=== PATIENT | female | born 1995 | race Caucasian/White ===

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

== ENCOUNTER 2017-05-25 19:05 | Emergency (ER) | payer OTHER ==
[~2017-05-25] VITALS: Ht 154.9 cm; Wt 49.0 kg
[2017-05-25 19:08] VITALS: Ht 154.9 cm; Wt 49.0 kg
[2017-05-25 20:08] LABS: BASOPHIL % 0.6 % (0-2); PLATELET COUNT 143 x10^3mcL (130-400); RED CELL DISTRIBUTION WIDTH 13.2 % (11.5-14.5); UA SPECIFIC GRAVITY >=1.030 (1.005-1.035); microscopic required? YES; urine erythrocyte NEGATIVE (NEGATIVE)
[2017-05-25 20:15] LABS: CALCIUM 8.5 mg/dL (8.5-10.1); CARBON DIOXIDE 27.8 mmol/L (21-32); CHLORIDE SERUM 105 mmol/L (98-107); CREATININE SERUM 0.5 mg/dL (0.6-1.0); GFR1 > 60 mL/min; GLUCOSE SERUM 126 mg/dL (74-106); POTASSIUM SERUM 3.1 mmol/L (3.5-5.1); SODIUM SERUM 139 mmol/L (136-145)
[2017-05-25 20:21] LABS: ALBUMIN 3.7 g/dL (3.4-5.0); ALKALINE PHOSPHATASE 83 U/L (46-116); ALT/SGPT 37 U/L (14-59); AST/SGOT 24 U/L (15-37); BILIRUBIN TOTAL 0.9 mg/dL (0.20-1.00); LIPASE 129 IU/L (73-393); TOTAL PROTEIN, SERUM 7.1 g/dL (6.4-8.2)
[2017-05-25 22:58] VITALS: BP 103/69
== END 2017-05-25 22:58 | disposition home or self-care (01) ==
LOC: ED 19:05
PROVIDERS: Emergency Medicine
DX: K59.00 Constipation, unspecified (principal)
CPT/HCPCS: 36415

== ENCOUNTER 2018-09-14 02:32 | Emergency (ER) | payer OTHER ==
[~2018-09-14] VITALS: Ht 157.5 cm; Wt 53.8 kg
[2018-09-14 02:38] VITALS: Ht 157.5 cm; Wt 53.8 kg
[2018-09-14 03:23] LABS: UA SPECIFIC GRAVITY 1.025 (1.005-1.035); microscopic required? YES; urine erythrocyte TRACE (NEGATIVE)
[2018-09-14 04:17] LABS: CARBON DIOXIDE 26.2 mmol/L (21-32); CHLORIDE SERUM 103 mmol/L (98-107); CREATININE SERUM 0.6 mg/dL (0.6-1.0); GFR1 > 60 mL/min; GLUCOSE SERUM 90 mg/dL (74-106); POTASSIUM SERUM 3.5 mmol/L (3.5-5.1); SODIUM SERUM 142 mmol/L (136-145)
[2018-09-14 04:22] LABS: ALKALINE PHOSPHATASE 83 U/L (46-116); ALT/SGPT 11 U/L (14-59); AST/SGOT 16 U/L (15-37); BILIRUBIN TOTAL 0.85 mg/dL (0.20-1.00); LIPASE 92 IU/L (73-393); TOTAL PROTEIN, SERUM 7.8 g/dL (6.4-8.2)
[2018-09-14 04:27] LABS: BASOPHIL % 0.6 % (0-2); PLATELET COUNT 160 x10^3mcL (130-400)
[2018-09-14 07:51] VITALS: BP 99/55
== END 2018-09-14 07:51 | disposition home or self-care (01) ==
LOC: ED 02:32
PROVIDERS: Emergency Medicine
DX: R10.2 Pelvic and perineal pain (principal)
CPT/HCPCS: 36415; 87491; 87591; J1885